=== PATIENT | male | born 1970 | race American Indian/Alaskan Native ===

== ENCOUNTER 2018-10-09 14:38 | Outpatient (CLI) | payer OTHER ==
[2018-10-09 16:45] LABS: Hepatitis C Virus Antibody Non-Reactive (NonReactive)
[2018-10-13 09:17] LABS: Hepatitis B Surface Antigen Nonreactive (Negative)
== END 2018-10-09 14:39 | disposition home or self-care (01) ==
LOC: LAB 14:38
PROVIDERS: ATTEND Internal Medicine
DX: N18.6 End stage renal disease (principal)
CPT/HCPCS: 36415; 80074

== ENCOUNTER 2019-09-05 08:22 | Day surgery (SDC) | payer OTHER ==
[~2019-09-05 08:22] MED LIST: SODIUM CHLORIDE 0.9% 1000 ML 1,000 ML IV SCH
--- NOTE | 2019-09-05 09:41 | Anesthesia Day of Surgery ---
Anesthesia Day of Surgery - Day of Surgery Patient Examined: Yes Patient H&P Reviewed: Yes Patient is NPO: Yes
--- NOTE | 2019-09-05 09:42 | Anesthesia Consultation ---
Anesthesia Consult and Med Hx Date of service: 09/05/19 - Airway Anesthetic Teeth Evaluation: Poor ROM Head & Neck: Adequate Mental/Hyoid Distance: Adequate Mallampati Class: Class I Intubation Access Assessment: Good - Pulmonary Exam CTA: Yes - Cardiac Exam Cardiac Exam: RRR - Pre-Operative Health Status ASA Pre-Surgery Classification: ASA4 Proposed Anesthetic Plan: MAC - Cardiovascular System Hx Hypertension: Yes - Endocrine Hx End Stage Renal Disease: Yes (H/D yesterday) - Hematic Hx Anemia: (IRON DEFCIENCY ANEMIA)
[2019-09-05] MEDS ORDERED: propofoL 200 MG/20 ML VIAL IV ONE ×2 (10:36)
--- NOTE | 2019-09-05 11:02 | Short Stay Summary ---
Short Stay Documentation Date of service: 09/05/19 - History Principal diagnosis: Iron defiency anemia H&P: obtained from office Past Medical History: ESRD Past Surgical History: Other Social history: no significant social history - Allergies and Medications Current Medications: Allergies No Known Allergies Allergy (Verified 09/04/19 14:48) Home Medications Medication Instructions Recorded Confirmed Last Taken Type Aspirin BABY CHEW TAB 81 mg PO DAILY 09/04/19 09/04/19 Unknown History Bumetanide 1 mg PO DAILY 09/04/19 09/05/19 09/05/19 History Calcitriol 0.5 mg PO DAILY 09/04/19 09/05/19 09/05/19 History Krill Oil 1 tab PO DAILY 09/04/19 09/04/19 Unknown History NIFEdipine 60 mg PO DAILY 09/04/19 09/05/19 09/05/19 History Sensipar 30 mg PO DAILY 09/04/19 09/05/19 09/05/19 History Sevelamer HCl 800 mg PO DAILY 09/04/19 09/04/19 Unknown History Vitamin D3 1 tab PO DAILY 09/04/19 09/04/19 Unknown History carvediloL 25 mg PO DAILY 09/04/19 09/05/19 09/05/19 History cloNIDine 0.1 mg PO DAILY 09/04/19 09/05/19 09/05/19 History hydrALAZINE 50 mg PO DAILY 09/04/19 09/05/19 09/05/19 History Active Medications Sodium Chloride (Nacl 0.9% 1000 Ml) 1,000 mls @ 50 mls/hr IV DIRECT BIENVENIDO Last Admin: 09/05/19 09:28 Dose: 50 mls/hr Documented by: - Physical exam General appearance: no acute distress Lungs: Clear to auscultation Heart: Regular rate Gastrointestinal: normal - Brief post op/procedure progress note Date of procedure: 09/05/19 Pre-op diagnosis: iron defiency anemia Post-op diagnosis: other (erythematous gastric mucosa (biopsied); duodenitis;colon polyp removed) Procedure: EGD with biopsies Colonoscopy with biopsy polypectomy Anesthesia: MAC Findings: EGD: gastritis, duodenitis Colonoscopy: fair prep, colon polyp removed Surgeon: NIXON BARRON Estimated blood loss: minimal Pathology: list (Jar A - gastric biopsies; Jar B - ascending colon polyp) Specimen disposition: to lab Condition: stable - Disposition Condition at discharge: Good Disposition: DC-01 TO HOME OR SELFCARE Short Stay Discharge Plan Follow up with: SIDNEY DOLAN JR, MD [Primary Care Provider] - 7 Days
--- NOTE | 2019-09-05 11:03 | Operative Report ---
Operative Report Operative Report: Esophagogastroduodenoscopy Procedure Note Date of procedure: 09/05/2019 Endoscopist: Marquez Chowdhury Pre-op diagnosis/indication: Iron deficiency anemia Post-op diagnosis: Gastritis, duodenitis MEDICATIONS: MAC COMPLICATIONS: No immediate complications ESTIMATED BLOOD LOSS: Minimal DESCRIPTION OF PROCEDURE: After consent was obtained, the patient was placed in the left lateral decubitis position. The olympus endoscope was inserted into the patient's mouth under direct vision and advanced to the 2nd portion of the duodenum without difficulty. The patient tolerated the procedure well. The views of the mucosa were good. The patient's vital signs were monitored continuously throughout the procedure. FINDINGS: The esophagus appeared normal. There was mild erythematous mucosa in the antrum of the stomach. Biopsies were obtained to evaluate for H pylori. There was mild erythematous mucosa in the first portion of the duodenum. Otherwise, the duodenum appeared normal. IMPRESSION: 1. Erythematous mucosa in the antrum. Biopsied 2. Duodenitis RECOMMENDATIONS: -follow-up pathology -avoid nsaid medications -colonoscopy to follow
--- NOTE | 2019-09-05 11:06 | Operative Report ---
Operative Report Operative Report: Colonoscopy Procedure Note with biopsy polypectomy Date of procedure: 09/05/2019 Endoscopist: Marquez Chowdhury Pre-op diagnosis/indication: Iron deficiency anemia Post-op diagnosis: Colon polyp MEDICATIONS: MAC COMPLICATIONS: No immediate complications ESTIMATED BLOOD LOSS: Minimal DESCRIPTION OF PROCEDURE: After consent was obtained, the patient was placed in the left lateral decubitis position. The olympus colonoscope was inserted into the rectum and advanced to the cecum without difficulty. The patient tolerated the procedure well. The views of the mucosa were fair. The quality of prep was fair. The patient's vital signs were monitored continuously throughout the procedure. FINDINGS: There was an ~2 mm sessile polyp in the ascending colon. The polyp was removed with cold biopsy forceps and retrieved. IMPRESSION: 1. Fair prep 2. One 2 mm sessile polyp removed with cold biopsy forceps. RECOMMENDATIONS: -follow-up pathology -repeat colonoscopy in 3 years for surveillance (due to fair prep and polyp removed) -follow-up in GI clinic as previously scheduled/or one month
[2019-09-05 11:38] VITALS: BP 132/86
--- NOTE | 2019-09-05 14:38 | Post Anesthesia Evaluation ---
- Post Anesthesia Evaluation Patient Participated: Yes Airway Patent: Yes Stable Respiratory Function: Yes Nausea/Vomiting: No Temp > 96.8F: Yes Pain Manageable: Yes Adequeate Hydration: Yes Anesthesia Complications: No Block Receding Appropriately: Not Applicable Patient on Ventilator: No
== END 2019-09-05 08:23 | disposition home or self-care (01) ==
LOC: GIO 08:22
PROVIDERS: ATTEND Internal Medicine Gastroenterology
DX: D50.9 Iron deficiency anemia, unspecified (principal); D12.2 Benign neoplasm of ascending colon; K29.70 Gastritis, unspecified, without bleeding; K29.80 Duodenitis without bleeding; K31.89 Other diseases of stomach and duodenum; I12.0 Hypertensive chronic kidney disease with stage 5 chronic kidney disease or end stage renal disease; N18.6 End stage renal disease; Z98.890 Other specified postprocedural states; Z79.899 Other long term (current) drug therapy
CPT/HCPCS: 43239; 45380; 88305; 88342; J2704; J7030